=== PATIENT | female | born 1995 | race Caucasian/White ===

== ENCOUNTER 2018-06-16 22:24 | Emergency (ER) | payer MEDICAID ==
[~2018-06-16] VITALS: Ht 157.5 cm; Wt 51.0 kg
[2018-06-16 22:29] VITALS: Ht 157.5 cm; Wt 51.0 kg
[2018-06-17] MEDS ORDERED: IBUPROFEN 600 MG TAB PO ONE (02:00)
--- NOTE | 2018-06-17 03:49 | PSY ---
Date/Time of Note Date/Time of Note DATE: 06/17/18 TIME: 03:48 Psychiatric Subjective Eval Consent Pt consented to telemedicine: Yes Subjective Evaluation Patient location: emergency Chief Complaint: THOUGHTS OF SLICING HER NECK IN HOPES OF KILLING HERSELF,HX OF MENTAL HEALT Psychiatric Objective Eval Mental Status Examination: Laboratory Results Laboratory Tests Test 06/17/18 00:24 06/17/18 00:46 Urine Color YELLOW Urine Clarity CLEAR Urine pH 6.0 Urine Specific [place] 1.003 Urine Ketones 1+ mg/dL Urine Nitrite NEGATIVE mg/dL Urine Bilirubin NEGATIVE mg/dL Urine Urobilinogen NEGATIVE mg/dL Urine Leukocyte Esterase NEGATIVE Jose/ul Urine Microscopic RBC 1 /HPF Urine Microscopic WBC 1 /HPF Urine Bacteria FEW /HPF Urine Hemoglobin 2+ mg/dL Urine Glucose NEGATIVE mg/dL Urine Total Protein NEGATIVE mg/dl Urine Opiates Screen Negative Urine Barbiturates Negative Urine Amphetamines Screen POSITIVE Urine Benzodiazepines Screen Negative Urine Cocaine Screen Negative Urine Cannabinoids Positive White Blood Count 20.5 10^3/ul Red Blood Count 5.14 10^6/ul Hemoglobin 15.9 g/dl Hematocrit 46.0 % Mean Corpuscular Volume 89.5 fl Mean Corpuscular Hemoglobin 30.9 pg Mean Corpuscular Hemoglobin Concent 34.6 g/dl Red Cell Distribution Width 12.6 % Platelet Count 275 10^3/UL Mean Platelet Volume 11.0 fl Immature Granulocytes % 0.600 % Neutrophils % 85.3 % Lymphocytes % 7.1 % Monocytes % 6.4 % Eosinophils % 0.3 % Basophils % 0.3 % Nucleated Red Blood Cells % 0.0 /100WBC Immature Granulocytes # 0.130 10^3/ul Neutrophils # 17.5 10^3/ul Lymphocytes # 1.5 10^3/ul Monocytes # 1.3 10^3/ul Eosinophils # 0.1 10^3/ul Basophils # 0.1 10^3/ul Nucleated Red Blood Cells # 0.0 10^3/ul Sodium Level 140 mmol/L Potassium Level 3.3 mmol/L Chloride Level 100 mmol/L Carbon Dioxide Level 21 mmol/L Anion Gap 19 Blood Urea Nitrogen 8 mg/dl Creatinine 0.60 mg/dl Est Glomerular Filtrat Rate mL/min > 60 mL/min Glucose Level 115 mg/dl Calcium Level 10.1 mg/dl Total Bilirubin 0.5 mg/dl Direct Bilirubin 0.00 mg/dl Indirect Bilirubin 0.5 mg/dl Aspartate Amino Transf (AST/SGOT) 34 IU/L Alanine Aminotransferase (ALT/SGPT) 14 IU/L Alkaline Phosphatase 70 IU/L Total Protein 8.8 g/dl Albumin 5.1 g/dl Globulin 3.70 g/dl Albumin/Globulin Ratio 1.37 Salicylates Level < 1.0 mg/dl Acetaminophen Level < 10.0 ug/ml Ethyl Alcohol Level < 10.0 mg/dl Assessment and Plan Recommendation/Plan Discharge Disposition: Psychiatric inpatient Legal Status: Place involuntary hold Assessment Additional comments: IDENTIFYING INFORMATION: 22 year old Female patient who is currently located at the hospital and for whom psychiatric consultation was requested. SOURCES OF INFORMATION: The patient who appears to be unreliable and the medical records; the nursing staff. CHIEF COMPLAINT: "my vagina was kind of red". HISTORY OF PRESENT ILLNESS: The patient was interviewed via telemedicine in the presence of and under the supervision of nursing staff of the hospital. The consent to conducting this interview via telemedicine was obtained by the nursing staff at the hospital. EVANS Peralta reports that the patient presented with SI with plan to OD or slice her throat, AH telling her to stay home. The patient reports having SI with plan to slice with her neck, AH, paranoid delusions. The patient reports drinking 1-2 drinks per day. The patient denies using alcohol heavily or regularly. The patient reports using meth and MJ daily. Last use was today. The patient denies using any other substances. In terms of past psychiatric history, the patient reports having a history of past psychiatric hospitalizations. The patient reports having a history of past suicide attempts. PAST MEDICAL HISTORY: none. CURRENT MEDICATIONS: none. ALLERGIES TO MEDICATIONS: NKDA. LABORATORY TESTS: CBC with WBCs 20.5, , CMP with potassium 3.3, UDS + amph, MJ, alcohol level not detected. SOCIAL HISTORY: homeless, single, no kids, not employed, not on disability. REVIEW OF SYSTEMS: Constitutional (e.g., fever, weight loss): negative; Eyes, Ears, Nose, Mouth, Throat: negative; Cardiovascular: negative; Respiratory: negative; Gastrointestinal: negative; Genitourinary: negative; Musculoskeletal: negative; Integumentary (skin and/or breast): negative; Neurological: negative; Psychiatric: as per HPI; Endocrine: negative; Hematologic/Lymphatic: negative; Allergic/Immunologic: negative. MENTAL STATUS EXAMINATION: General Appearance and Behavior: restless, appears to be responding to internal stimuli, partially cooperative with most of the interview, excessively pleasant with the current interviewer, makes poor eye contact, poorly groomed, increased psychomotor activity, no abnormal movements noted. Speech: Normal rate, regular rhythm, normal latency, normal volume, increased amount, Flow of thought: tangential, illogical, not goal-directed. Content of thought: + auditory hallucinations, + paranoid delusions, no visual hallucinations, + suicidal ideation; no homicidal ideation. Mood: "OK". Affect: euphoric, decreased range of reactivity. Attention: normal based on the interview. Insight: poor. Judgment: poor. Memory: normal based on the interview. Sensorium: alert and oriented to person, date, place. ASSESSMENT: The patient's presentation and history are consistent with the diagnosis of unspecified psychotic disorder, stimulant use disorder, cannabis use disorder. The patient presents with an exacerbation of psychosis in the context of medication noncompliance, psychosocial stressors and substance use. PLAN: - Medication management: Would start Seroquel 50 mg by mouth twice a day. Would start haloperidol 5 mg IM PRN severe agitation q4 hours. Would start diphenhydramine 50 mg IM PRN severe agitation q4 hours. Would start lorazepam 2 mg IM PRN severe agitation q4 hours Will defer to the inpatient psychiatry team for other medication changes. - Labs: No other laboratory tests are needed at this time. - Psychotherapy: Provided supportive psychotherapy and psychoeducation. - Disposition: Would recommend involuntary admission to the inpatient psychiatric unit given the severity of the patient's psychiatric condition and the fact that the patient is an imminent danger to self and/or others so long as the patient has been cleared medically for admission to psychiatry. Inpatient psychiatric admission is at this time the least restrictive environment where the patient can receive the psychiatric care that is needed. Would place on suicide precautions. The patient fulfills criteria for being placed on an involuntary hold for being a danger to self due to a psychiatric disorder. Discussed about the above plan with Dr. Stratton. VAISHALI BRAVO MD Jun 17, 2018 03:49
--- NOTE | 2018-06-17 03:51 | ERD ---
ER Documentation Chief Complaint Chief Complaint THOUGHTS OF SLICING HER NECK IN HOPES OF KILLING HERSELF,HX OF MENTAL HEALT HPI This is a 22-year-old female with a history of methamphetamine abuse presents to the ER for evaluation of depression and suicidal ideation. She states that she wants to kill herself by shooting herself in the head with a gun. The patient states that she has been feeling depressed and denies any homicidal ideation and states that she last used amphetamines 2 days ago ROS All systems reviewed and are negative except as per history of present illness. PMhx/Soc Medical and Surgical Hx: pt denies Medical Hx, pt denies Surgical Hx Hx Alcohol Use: Yes Hx Substance Use: Yes (MArijuana, crystal meth) Hx Tobacco Use: Yes Smoking Status: Smoker,current status unk Physical Exam Vitals Vital Signs Date Temp Pulse Resp B/P (MAP) Pulse Ox O2 O2 Flow FiO2 Time Delivery Rate 06/17/18 98.8 76 16 126/76 99 Room Air 00:45 (93) 06/16/18 100.5 132 20 132/80 98 22:29 (97) Physical Exam INITIAL VITAL SIGNS: Reviewed by me GENERAL: The patient is well developed and appropriate for usual state of he alth in no apparent distress HEENT: Pupils equal, round, and reactive to light. EOMI. There is no scleral icterus. NECK: C-spine is soft and supple, there is no meningismus. There is no cervical lymphadenopathy. LUNGS: Clear to auscultation bilaterally. There are no rales, wheezes or rhonchi. HEART: Regular rate and rhythm, no murmurs, clicks, rubs or gallops. ABDOMEN: Soft, non-tender, non-distended. There are bowel sounds in all four quadrants. No rebound or guarding. EXTREMITIES: There is no peripheral cyanosis or edema. No focal swelling or erythema. NEUROLOGICAL: The patient moves all four extremities with 5/5 strength. Cranial nerves II - XII are intact. Normal gait. Alert and oriented SKIN: There is no apparent rash or petechiae. HEME/LYMPHATIC: There is no evidence of excessive bruising or lymphedema. PSYCHIATRIC: The patient does is slightly agitated Result Diagram: 06/17/18 0046 06/17/18 0046 Results 24 hrs Laboratory Tests Test 06/17/18 00:24 06/17/18 00:46 Urine Color YELLOW Urine Clarity CLEAR Urine pH 6.0 Urine Specific [place] 1.003 Urine Ketones 1+ mg/dL Urine Nitrite NEGATIVE mg/dL Urine Bilirubin NEGATIVE mg/dL Urine Urobilinogen NEGATIVE mg/dL Urine Leukocyte Esterase NEGATIVE Jose/ul Urine Microscopic RBC 1 /HPF Urine Microscopic WBC 1 /HPF Urine Bacteria FEW /HPF Urine Hemoglobin 2+ mg/dL Urine Glucose NEGATIVE mg/dL Urine Total Protein NEGATIVE mg/dl Urine Opiates Screen Negative Urine Barbiturates Negative Urine Amphetamines Screen POSITIVE Urine Benzodiazepines Screen Negative Urine Cocaine Screen Negative Urine Cannabinoids Positive White Blood Count 20.5 10^3/ul Red Blood Count 5.14 10^6/ul Hemoglobin 15.9 g/dl Hematocrit 46.0 % Mean Corpuscular Volume 89.5 fl Mean Corpuscular Hemoglobin 30.9 pg Mean Corpuscular Hemoglobin Concent 34.6 g/dl Red Cell Distribution Width 12.6 % Platelet Count 275 10^3/UL Mean Platelet Volume 11.0 fl Immature Granulocytes % 0.600 % Neutrophils % 85.3 % Lymphocytes % 7.1 % Monocytes % 6.4 % Eosinophils % 0.3 % Basophils % 0.3 % Nucleated Red Blood Cells % 0.0 /100WBC Immature Granulocytes # 0.130 10^3/ul Neutrophils # 17.5 10^3/ul Lymphocytes # 1.5 10^3/ul Monocytes # 1.3 10^3/ul Eosinophils # 0.1 10^3/ul Basophils # 0.1 10^3/ul Nucleated Red Blood Cells # 0.0 10^3/ul Sodium Level 140 mmol/L Potassium Level 3.3 mmol/L Chloride Level 100 mmol/L Carbon Dioxide Level 21 mmol/L Anion Gap 19 Blood Urea Nitrogen 8 mg/dl Creatinine 0.60 mg/dl Est Glomerular Filtrat Rate mL/min > 60 mL/min Glucose Level 115 mg/dl Calcium Level 10.1 mg/dl Total Bilirubin 0.5 mg/dl Direct Bilirubin 0.00 mg/dl Indirect Bilirubin 0.5 mg/dl Aspartate Amino Transf (AST/SGOT) 34 IU/L Alanine Aminotransferase (ALT/SGPT) 14 IU/L Alkaline Phosphatase 70 IU/L Total Protein 8.8 g/dl Albumin 5.1 g/dl Globulin 3.70 g/dl Albumin/Globulin Ratio 1.37 Salicylates Level < 1.0 mg/dl Acetaminophen Level < 10.0 ug/ml Ethyl Alcohol Level < 10.0 mg/dl Current Medications Medications Dose Sig/Juan David Start Time Status Last (Trade) Ordered Route PRN Stop Time Admin Dose Reason Admin Ibuprofen 600 mg ONCE ONCE 06/17/18 DC 06/17/18 (Motrin) PO 02:00 02:22 06/17/18 02:01 Procedures/MDM This 22-year-old female presents to the ER for evaluation of suicidal ideation. On my exam the patient was slightly agitated. The patient has been medically cleared. She does have a leukocytosis however I do feel is reactive and secondary to her drug use and agitation. The patient has no signs of infection. The patient was medically cleared and was evaluated by tele-psych physician Dr. jaramillo who agrees the patient should be on a 50 1 50 hold. He does recommend Seroquel 15 mg p.o. twice daily. The patient was given charcoal in the ER and we will await psychiatric evaluation team Patient presents with symptomatology consistent with the decompensation of previously diagnosed psychiatric disease. Based on history, physical exam and appropriate lab tests, I appreciate no evidence of significant life-threatening injury or illness that includes a psychiatric hospitalization. Patient is thus "medically clear" for psychiatric admission. In regards to the psychiatric complaints, this patient has clear evidence of high risk psychiatric symptoms with significant risk for decompensation, thus requiring admission to the hospital for stabilization. Departure Diagnosis: Primary Impression: Suicidal ideation Additional Impression: Amphetamine abuse Condition: JULIANA Haywood DO Jun 17, 2018 03:51
[2018-06-17] MEDS ORDERED: QUETIAPINE 25 MG TAB PO ONE (04:00)
[2018-06-17 09:13] VITALS: BP 113/84; PULSE 89; RESP 16
== END 2018-06-17 09:29 ==
LOC: E/R 22:24
DX: F15.10 Other stimulant abuse, uncomplicated (principal); Z87.891 Personal history of nicotine dependence
CPT/HCPCS: 36415; 80053; 80307; 81001; 84703; 85025; Z7502; Z7610